=== PATIENT | male | born 1945 | race Two or more races ===

== ENCOUNTER 2023-11-23 05:25 | Day surgery (SDC) | payer OTHER ==
[~2023-11-23 05:25] MED LIST: MYSOLINE50 MG PO; SIMVASTATIN5 MG PO
[2023-11-23] MEDS ORDERED: CEFAZOLIN SODIUM 1,000 MG VIAL IV ONE (07:00)
[2023-11-23] MEDS ORDERED: BACITRACIN 28.35 GM OINT.TUBE TOP ONE (08:15)
[2023-11-23] MEDS ORDERED: POVIDONE-IODINE 118 ML BOTT TOP ONE (08:15)
[2023-11-23] MEDS ORDERED: BUPIVACAINE HCL 30 ML VIAL IJ ONE (08:15)
== END 2023-11-23 10:55 | disposition home or self-care (01) ==
LOC: CIR.AMB 05:25
PROVIDERS: ATTEND Surgery Surgery of the Hand
DX: M65.841 Other synovitis and tenosynovitis, right hand (principal); R00.1 Bradycardia, unspecified; E78.5 Hyperlipidemia, unspecified; M19.90 Unspecified osteoarthritis, unspecified site; F41.9 Anxiety disorder, unspecified